=== PATIENT | female | born 1950 | race Caucasian/White ===

== ENCOUNTER 2024-01-23 14:24 | Emergency (ER) | payer MEDICARE, BC ==
[2024-01-23] MEDS: Lidocaine 2% 11 ML Jelly Filled Syringe MUCMEM ONE (16:38)
[2024-01-23 16:42] LABS: APPEARANCE,URINE CLOUDY (Clear); BILIRUBIN,URINE NEGATIVE (Negative); COLOR,URINE YELLOW (Yellow); GLUCOSE,URINE NEGATIVE (Negative); KETONES,URINE NEGATIVE (Negative); LEUKOCYTE ESTERASE,URINE 2+ (Negative); NITRITE,URINE NEGATIVE (Negative); OCCULT BLOOD,URINE 3+ (Negative); PROTEIN,URINE 3+ (Negative); UROBILINOGEN,URINE 0.2 (0.2-1.0)
[2024-01-23 16:49] LABS: BACTERIA,URINE MANY /hpf (FEW); MUCUS,URINE MODERATE /hpf (FEW); RBC,URINE >100 /hpf (0-5); WBC,URINE >100 /hpf (0-5)
[2024-01-23] MEDS: Cefdinir 300 MG Cap PO ONE (17:58)
== END 2024-01-23 18:40 | disposition home or self-care (01) ==
LOC: JD.ED 14:24
DX: N39.0 Urinary tract infection, site not specified (principal); K59.01 Slow transit constipation; Z79.2 Long term (current) use of antibiotics; N18.9 Chronic kidney disease, unspecified; E11.22 Type 2 diabetes mellitus with diabetic chronic kidney disease; Z90.49 Acquired absence of other specified parts of digestive tract; Z90.710 Acquired absence of both cervix and uterus; Z91.048 Other nonmedicinal substance allergy status
CPT/HCPCS: 74018; 81001; 87086; 99285; A9270; C1758; 99284

== ENCOUNTER 2024-04-11 10:38 | Inpatient (IN) | payer MEDICARE, BC ==
[2024-04-11] MEDS: Diltiazem 25 MG/5 ML SDV IVPUSH ONE (11:08)
[2024-04-11] MEDS: Diltiazem 125 MG in Sodium Chloride 0.9% 100 ML IV SCH (11:08)
[2024-04-11 11:09] LABS: BASOPHILS PERCENT AUTO 0.2 % (0.0-1.0); EOSINOPHILS ABSOLUTE AUTO 0.1 K/mm3 (0.0-0.4); EOSINOPHILS PERCENT AUTO 0.3 % (0.0-6.0); HEMATOCRIT 28.7 % (37.0-47.0); IMMATURE GRAN ABSOLUTE AUTO 0.13 K/mm3 (0.00-0.05); IMMATURE GRAN PERCENT AUTO 0.7 % (0.0-0.4); LYMPHOCYTES ABSOLUTE AUTO 1.5 K/mm3 (1.0-4.8); LYMPHOCYTES PERCENT AUTO 8.3 % (24.0-44.0); MEAN CORPUSCULAR HEMOGLOBIN 28.1 pg (28.0-32.0); MEAN CORPUSCULAR HGB CONC 31.4 g/dl (32.0-36.0); MEAN PLATELET VOLUME 8.8 fl (9.4-12.3); MONOCYTES ABSOLUTE AUTO 1.4 K/mm3 (0.0-0.8); MONOCYTES PERCENT AUTO 7.6 % (0.0-8.0); NEUTROPHILS ABSOLUTE AUTO 14.7 K/mm3 (1.8-7.7); NEUTROPHILS PERCENT AUTO 82.9 % (41.0-71.0); WHITE BLOOD CELL COUNT,WBC 17.78 K/mm3 (3.9-11.3)
[2024-04-11 11:10] LABS: MEAN CORPUSCULAR VOLUME 89.7 fl (83.0-99.0); PLATELET COUNT,PLT 304 K/mm3 (150-400)
[2024-04-11 11:54] LABS: A/G RATIO 0.6 (1-2); ALBUMIN 2.6 g/dl (3.4-5.0); ANION GAP 15.9 (5-15); BILIRUBIN TOTAL 0.8 mg/dL (0.2-1.0); BUN/CREATININE RATIO 19.2 (14-18); CALCIUM 9.2 mg/dL (8.5-10.1); CREATININE 2.6 mg/dL (0.55-1.02); EST CRCL DRUG DOSING (CG) 16.82 mL/min; MAGNESIUM 2.2 mg/dL (1.8-2.4); POTASSIUM,K 3.9 mEq/L (3.5-5.1); PROTEIN TOTAL,TP 7.2 g/dl (6.4-8.2)
[2024-04-11] MEDS ORDERED: Polyethylene Glycol 3350 Powder 17 GM Packet PO PRN (12:46)
[2024-04-11] MEDS ORDERED: Docusate Sodium 100 MG Cap PO PRN (12:46)
[2024-04-11] MEDS ORDERED: oxyCODONE 5 MG Tab PO PRN (12:46)
[2024-04-11] MEDS ORDERED: Ondansetron 4 MG/2 ML SDV IV PRN (12:46)
[2024-04-11 13:25] LABS: PHOSPHORUS 3.8 mg/dL (2.6-4.7)
[2024-04-11] MEDS ORDERED: hydrOXYzine HCl 10 MG Tab PO PRN (13:35)
[2024-04-11 13:37] LABS: C-REACTIVE PROTEIN > 25.00 mg/dL (<0.30)
[2024-04-11] MEDS ORDERED: Meropenem 0.5 GM in Sodium Chloride 0.9% 100 ML IV SCH (13:45)
[2024-04-11] MEDS: Metoprolol Tartrate 50 MG Tab PO SCH (13:54)
[2024-04-11] MEDS: Insulin Lispro 100 Unit/ML 3 ML KwikPen SUBCUT SCH (17:53)
[2024-04-11] MEDS: Apixaban 2.5 MG Tab PO SCH (20:05)
[2024-04-11] MEDS: Famotidine 20 MG Tab PO SCH (20:05)
[2024-04-11] MEDS: Sodium Bicarbonate 650 MG Tab PO SCH (20:05)
[2024-04-11] MEDS: Levalbuterol HCl 1.25 MG/3 ML Neb NEB PRN (20:17)
[2024-04-11] MEDS: Formoterol/Mometasone 200-5 MCG 8.8 GM Inhaler INH SCH (20:17)
[2024-04-11 21:56] LABS: APPEARANCE,URINE SLT CLOUDY (Clear); BILIRUBIN,URINE NEGATIVE (Negative); COLOR,URINE YELLOW (Yellow); GLUCOSE,URINE NEGATIVE (Negative); KETONES,URINE NEGATIVE (Negative); LEUKOCYTE ESTERASE,URINE 3+ (Negative); NITRITE,URINE NEGATIVE (Negative); OCCULT BLOOD,URINE TRACE-INTACT (Negative); PH,URINE 8.5 (5.0-8.0); PROTEIN,URINE 3+ (Negative); UROBILINOGEN,URINE 0.2 (0.2-1.0)
[2024-04-11] MEDS: Meropenem 500 MG in Sodium Chloride 0.9% 100 ML IV SCH (22:04)
[2024-04-11 22:14] LABS: BACTERIA,URINE MANY /hpf (FEW); MUCUS,URINE FEW /hpf (FEW); SQUAMOUS EPITHELIAL CELLS,UR 0-5 /hpf (0-5)
[2024-04-12 04:37] LABS: BASOPHILS PERCENT AUTO 0.2 % (0.0-1.0); EOSINOPHILS ABSOLUTE AUTO 0.2 K/mm3 (0.0-0.4); EOSINOPHILS PERCENT AUTO 1.3 % (0.0-6.0); HEMATOCRIT 26.3 % (37.0-47.0); HEMOGLOBIN 8.2 gm/dl (12.0-16.0); IMMATURE GRAN ABSOLUTE AUTO 0.06 K/mm3 (0.00-0.05); IMMATURE GRAN PERCENT AUTO 0.5 % (0.0-0.4); LYMPHOCYTES ABSOLUTE AUTO 2.4 K/mm3 (1.0-4.8); LYMPHOCYTES PERCENT AUTO 19.1 % (24.0-44.0); MEAN CORPUSCULAR HEMOGLOBIN 28.1 pg (28.0-32.0); MEAN CORPUSCULAR HGB CONC 31.2 g/dl (32.0-36.0); MEAN CORPUSCULAR VOLUME 90.1 fl (83.0-99.0); MEAN PLATELET VOLUME 9.1 fl (9.4-12.3); MONOCYTES PERCENT AUTO 8.2 % (0.0-8.0); NEUTROPHILS ABSOLUTE AUTO 8.9 K/mm3 (1.8-7.7); NEUTROPHILS PERCENT AUTO 70.7 % (41.0-71.0); PLATELET COUNT,PLT 265 K/mm3 (150-400); RED BLOOD CELL COUNT 2.92 M/mm3 (4.10-5.30); WHITE BLOOD CELL COUNT,WBC 12.62 K/mm3 (3.9-11.3)
[2024-04-12 05:07] LABS: A/G RATIO 0.5 (1-2); ALANINE AMINOTRANSFERASE,ALT 24 U/L (14-59); ALBUMIN 2.1 g/dl (3.4-5.0); ALKALINE PHOSPHATASE 87 U/L (46-116); ANION GAP 12.9 (5-15); ASPARTATE AMNIOTRANSFERASE,AST 16 U/L (15-37); BILIRUBIN TOTAL 0.6 mg/dL (0.2-1.0); BLOOD UREA NITROGEN,BUN 46 mg/dL (7-18); CALCIUM 9.1 mg/dL (8.5-10.1); CARBON DIOXIDE,CO2 26 mEq/L (21-32); CHLORIDE,CL 100 mEq/L (98-107); CREATININE 2.3 mg/dL (0.55-1.02); EST CRCL DRUG DOSING (CG) 19.02 mL/min; ESTIMATED GFR 22 mL/min (>60); GLUCOSE RANDOM 130 mg/dL (70-99); MAGNESIUM 2.3 mg/dL (1.8-2.4); POTASSIUM,K 3.9 mEq/L (3.5-5.1); PROTEIN TOTAL,TP 6.7 g/dl (6.4-8.2); SODIUM,NA 135 mEq/L (136-145)
[2024-04-12] MEDS: Levothyroxine 75 MCG Tab PO SCH (05:28)
[2024-04-12 05:29] LABS: C-REACTIVE PROTEIN > 25.00 mg/dL (<0.30)
[2024-04-12] MEDS: DULoxetine 30 MG Cap PO SCH (08:26)
[2024-04-12] MEDS: Bumetanide 1 MG Tab PO SCH (08:27)
[2024-04-12] MEDS: Ezetimibe 10 MG Tab PO SCH (08:27)
[2024-04-12] MEDS: Pregabalin 75 MG Cap PO SCH (08:27)
[2024-04-12] MEDS: Metoprolol Tartrate 25 MG Tab PO ONE (10:57)
[2024-04-12] MEDS: Metoprolol Tartrate 25 MG Tab PO SCH (11:51)
[2024-04-12] MEDS ORDERED: Metoprolol Tartrate 25 MG Tab PO SCH (13:00)
[2024-04-12] MEDS: Amiodarone 150 MG/100 ML 100 ML IV ONE (17:35)
[2024-04-12] MEDS: Amiodarone 360 MG/200 ML 360 MG/200 ML BAG IV ONE (17:51)
[2024-04-12] MEDS: Acetaminophen 325 MG Tab PO PRN (20:56)
[2024-04-12] MEDS: Amiodarone 360 MG/200 ML 360 MG/200 ML BAG IV SCH (23:08)
[2024-04-13 04:10] LABS: BASOPHILS PERCENT AUTO 0.3 % (0.0-1.0); EOSINOPHILS ABSOLUTE AUTO 0.2 K/mm3 (0.0-0.4); EOSINOPHILS PERCENT AUTO 2.3 % (0.0-6.0); HEMOGLOBIN 7.9 gm/dl (12.0-16.0); IMMATURE GRAN ABSOLUTE AUTO 0.06 K/mm3 (0.00-0.05); IMMATURE GRAN PERCENT AUTO 0.6 % (0.0-0.4); LYMPHOCYTES ABSOLUTE AUTO 2.4 K/mm3 (1.0-4.8); LYMPHOCYTES PERCENT AUTO 25.1 % (24.0-44.0); MEAN CORPUSCULAR HEMOGLOBIN 27.5 pg (28.0-32.0); MEAN CORPUSCULAR HGB CONC 30.4 g/dl (32.0-36.0); MEAN CORPUSCULAR VOLUME 90.6 fl (83.0-99.0); MEAN PLATELET VOLUME 8.8 fl (9.4-12.3); NEUTROPHILS ABSOLUTE AUTO 5.9 K/mm3 (1.8-7.7); NEUTROPHILS PERCENT AUTO 61.7 % (41.0-71.0); PLATELET COUNT,PLT 282 K/mm3 (150-400); RED BLOOD CELL COUNT 2.87 M/mm3 (4.10-5.30); WHITE BLOOD CELL COUNT,WBC 9.63 K/mm3 (3.9-11.3)
[2024-04-13 04:52] LABS: A/G RATIO 0.4 (1-2); ALANINE AMINOTRANSFERASE,ALT 28 U/L (14-59); ALKALINE PHOSPHATASE 86 U/L (46-116); ANION GAP 15.5 (5-15); ASPARTATE AMNIOTRANSFERASE,AST 21 U/L (15-37); BILIRUBIN TOTAL 0.5 mg/dL (0.2-1.0); BLOOD UREA NITROGEN,BUN 48 mg/dL (7-18); BUN/CREATININE RATIO 20.9 (14-18); CALCIUM 8.8 mg/dL (8.5-10.1); CARBON DIOXIDE,CO2 25 mEq/L (21-32); CHLORIDE,CL 100 mEq/L (98-107); CREATININE 2.3 mg/dL (0.55-1.02); EST CRCL DRUG DOSING (CG) 19.02 mL/min; ESTIMATED GFR 22 mL/min (>60); GLUCOSE RANDOM 128 mg/dL (70-99); MAGNESIUM 2.2 mg/dL (1.8-2.4); POTASSIUM,K 3.5 mEq/L (3.5-5.1); PROTEIN TOTAL,TP 6.7 g/dl (6.4-8.2); SODIUM,NA 137 mEq/L (136-145)
[2024-04-13 05:09] LABS: C-REACTIVE PROTEIN > 25.00 mg/dL (<0.30)
[2024-04-13] MEDS: Potassium Chloride 20 MEQ Tab.ER PO ONE (10:11)
[2024-04-13] MEDS: Metoprolol Tartrate 25 MG Tab PO SCH (10:12)
[2024-04-13] MEDS: Metoprolol Tartrate 25 MG Tab PO ONE (11:37)
[2024-04-13] MEDS: Hyaluronidase, Human Recomb. 150 Unit/ML Vial INFILT ONE (15:51)
[2024-04-13] MEDS: Amiodarone 200 MG Tab PO SCH (16:53)
[2024-04-13] MEDS ORDERED: Metoprolol Tartrate 25 MG Tab PO SCH (21:00)
[2024-04-13] MEDS: Metoprolol Tartrate 100 MG Tab PO SCH (21:33)
[2024-04-14 09:29] LABS: BASOPHILS PERCENT AUTO 0.3 % (0.0-1.0); EOSINOPHILS ABSOLUTE AUTO 0.2 K/mm3 (0.0-0.4); EOSINOPHILS PERCENT AUTO 2.3 % (0.0-6.0); HEMATOCRIT 31.2 % (37.0-47.0); HEMOGLOBIN 9.6 gm/dl (12.0-16.0); IMMATURE GRAN ABSOLUTE AUTO 0.04 K/mm3 (0.00-0.05); IMMATURE GRAN PERCENT AUTO 0.4 % (0.0-0.4); LYMPHOCYTES ABSOLUTE AUTO 1.5 K/mm3 (1.0-4.8); MEAN CORPUSCULAR HEMOGLOBIN 27.8 pg (28.0-32.0); MEAN CORPUSCULAR HGB CONC 30.8 g/dl (32.0-36.0); MEAN CORPUSCULAR VOLUME 90.4 fl (83.0-99.0); MEAN PLATELET VOLUME 8.9 fl (9.4-12.3); MONOCYTES ABSOLUTE AUTO 0.7 K/mm3 (0.0-0.8); MONOCYTES PERCENT AUTO 6.7 % (0.0-8.0); NEUTROPHILS ABSOLUTE AUTO 7.7 K/mm3 (1.8-7.7); NEUTROPHILS PERCENT AUTO 75.3 % (41.0-71.0); PLATELET COUNT,PLT 392 K/mm3 (150-400); RED BLOOD CELL COUNT 3.45 M/mm3 (4.10-5.30); WHITE BLOOD CELL COUNT,WBC 10.22 K/mm3 (3.9-11.3)
[2024-04-14 09:42] LABS: A/G RATIO 0.4 (1-2); ALBUMIN 2.2 g/dl (3.4-5.0); ANION GAP 15.5 (5-15); BILIRUBIN TOTAL 0.4 mg/dL (0.2-1.0); BUN/CREATININE RATIO 20.8 (14-18); C-REACTIVE PROTEIN 20.9 mg/dL (<0.30); CALCIUM 9.3 mg/dL (8.5-10.1); CREATININE 2.4 mg/dL (0.55-1.02); EST CRCL DRUG DOSING (CG) 18.22 mL/min; POTASSIUM,K 3.5 mEq/L (3.5-5.1); PROTEIN TOTAL,TP 7.2 g/dl (6.4-8.2)
[2024-04-14] MEDS: Potassium Chloride 20 MEQ Tab.ER PO ONE (12:53)
[2024-04-15 06:10] LABS: BASOPHILS PERCENT AUTO 0.4 % (0.0-1.0); EOSINOPHILS ABSOLUTE AUTO 0.2 K/mm3 (0.0-0.4); EOSINOPHILS PERCENT AUTO 2.6 % (0.0-6.0); HEMATOCRIT 27.3 % (37.0-47.0); HEMOGLOBIN 8.5 gm/dl (12.0-16.0); IMMATURE GRAN ABSOLUTE AUTO 0.05 K/mm3 (0.00-0.05); IMMATURE GRAN PERCENT AUTO 0.5 % (0.0-0.4); LYMPHOCYTES PERCENT AUTO 22.2 % (24.0-44.0); MEAN CORPUSCULAR HEMOGLOBIN 27.2 pg (28.0-32.0); MEAN CORPUSCULAR HGB CONC 31.1 g/dl (32.0-36.0); MEAN PLATELET VOLUME 8.8 fl (9.4-12.3); MONOCYTES ABSOLUTE AUTO 0.9 K/mm3 (0.0-0.8); MONOCYTES PERCENT AUTO 9.4 % (0.0-8.0); NEUTROPHILS ABSOLUTE AUTO 5.9 K/mm3 (1.8-7.7); NEUTROPHILS PERCENT AUTO 64.9 % (41.0-71.0); PLATELET COUNT,PLT 332 K/mm3 (150-400); RED BLOOD CELL COUNT 3.13 M/mm3 (4.10-5.30); WHITE BLOOD CELL COUNT,WBC 9.15 K/mm3 (3.9-11.3)
[2024-04-15 06:13] LABS: MEAN CORPUSCULAR VOLUME 87.2 fl (83.0-99.0)
[2024-04-15 06:31] LABS: A/G RATIO 0.5 (1-2); ALBUMIN 2.1 g/dl (3.4-5.0); BILIRUBIN TOTAL 0.4 mg/dL (0.2-1.0); BUN/CREATININE RATIO 23.6 (14-18); C-REACTIVE PROTEIN 12.57 mg/dL (<0.30); CREATININE 2.5 mg/dL (0.55-1.02); EST CRCL DRUG DOSING (CG) 17.5 mL/min; PROTEIN TOTAL,TP 6.7 g/dl (6.4-8.2)
[2024-04-15 06:49] LABS: ANION GAP 13.2 (5-15); POTASSIUM,K 4.2 mEq/L (3.5-5.1)
[2024-04-15] MEDS: Potassium Chloride 20 MEQ Tab.ER PO SCH (09:44)
[2024-04-16] MEDS ORDERED: Amiodarone 200 MG Tab PO SCH (09:00)
== END 2024-04-15 15:55 | DRG 308 ==
LOC: JD.ED 10:38 → JD.ICU 12:25
PROVIDERS: ADMIT Emergency Medicine; ATTEND Student in an Organized Health Care Education/Training Program
PROC: 5A09457 Assistance with Respiratory Ventilation, 24-96 Consecutive Hours, Continuous Positive Airway Pressure (ICD-10-PCS; principal; 2024-04-11)
DX: I48.91 Unspecified atrial fibrillation (principal); I50.33 Acute on chronic diastolic (congestive) heart failure; J96.01 Acute respiratory failure with hypoxia; N39.0 Urinary tract infection, site not specified; I13.0 Hypertensive heart and chronic kidney disease with heart failure and stage 1 through stage 4 chronic kidney disease, or unspecified chronic kidney disease; N18.4 Chronic kidney disease, stage 4 (severe); I31.39 Other pericardial effusion (noninflammatory); Z66 Do not resuscitate; I50.9 Heart failure, unspecified; E03.9 Hypothyroidism, unspecified; E11.40 Type 2 diabetes mellitus with diabetic neuropathy, unspecified; D63.1 Anemia in chronic kidney disease; H26.9 Unspecified cataract; F15.90 Other stimulant use, unspecified, uncomplicated; H54.7 Unspecified visual loss; J45.909 Unspecified asthma, uncomplicated; K21.9 Gastro-esophageal reflux disease without esophagitis; M81.0 Age-related osteoporosis without current pathological fracture; F41.9 Anxiety disorder, unspecified; F32.A Depression, unspecified; D72.829 Elevated white blood cell count, unspecified; E11.21 Type 2 diabetes mellitus with diabetic nephropathy; I15.0 Renovascular hypertension; E78.2 Mixed hyperlipidemia; M79.7 Fibromyalgia; I08.1 Rheumatic disorders of both mitral and tricuspid valves; I27.20 Pulmonary hypertension, unspecified; E11.22 Type 2 diabetes mellitus with diabetic chronic kidney disease; R79.89 Other specified abnormal findings of blood chemistry; N18.9 Chronic kidney disease, unspecified; G47.30 Sleep apnea, unspecified; Z79.1 Long term (current) use of non-steroidal anti-inflammatories (NSAID); Z79.60 Long term (current) use of unspecified immunomodulators and immunosuppressants; Z92.3 Personal history of irradiation; Z98.890 Other specified postprocedural states; Z79.51 Long term (current) use of inhaled steroids; Z90.13 Acquired absence of bilateral breasts and nipples; Z85.3 Personal history of malignant neoplasm of breast; Z91.09 Other allergy status, other than to drugs and biological substances; Z90.710 Acquired absence of both cervix and uterus; Z79.899 Other long term (current) drug therapy; Z79.84 Long term (current) use of oral hypoglycemic drugs; Z79.01 Long term (current) use of anticoagulants; Z91.048 Other nonmedicinal substance allergy status
CPT/HCPCS: 36415; 71045; 80053; 83605; 83735; 83880; 84100; 84443; 84484; 85025; 86140; 93005; 96365; 99285; J3490 ×2; 81001; 82947; 87040; 87086; 87088; 87186; 93010; 93306; 94640; 94660; 94761; A9270-GY; J0283; J1815; J2185; J7612-GY